=== PATIENT | male | born 1965 | race Caucasian/White ===

== ENCOUNTER 2018-05-24 11:07 | Inpatient (IN) | payer OTHER ==
[2018-05-24 11:30] VITALS: BMI 33.2
--- NOTE | 2018-05-24 12:07 | HP ---
CIWA Score - CIWA Score Nausea/Vomitin-Int. Nausea w/Dry Heave Muscle Tremors: 3 Anxiety: 2 Agitation: 2 Paroxysmal Sweats: 3 Orientation: 0-Oriented Tacttile Disturbances: 1-Very Mild Itch/Numbness Auditory Disturbances: 0-None Visual Disturbances: 0-None Headache: 1-Very Mild CIWA-Ar Total Score: 16 Admission ROS BHS - HPI Chief Complaint: I need to stop using drugs and alcohol. Allergies/Adverse Reactions: Allergies Allergy/AdvReac Type Severity Reaction Status Date / Time No Known Allergies Allergy Verified 05/24/18 11:43 History of Present Illness: 52 y/o m pt with a h/o opioid dep since age 8 , last used 3 bags nasal heroin last night , Pt also drinks alcohol usually 2 six pk/day -which he started at age 9 The pt is now seeking detox and rehab. Exam Limitations: No Limitations - Ebola screening Have you traveled outside of the country in the last 21 days: No Have you had contact with anyone from an Ebola affected area: No Have you been sick,other than usual withdrawal symptoms: No Do you have a fever: No - Review of Systems Constitutional: Loss of Appetite, Malaise, Night Sweats EENT: reports: Blurred Vision, Hearing Loss, Dental Problems Respiratory: reports: Wheezing Cardiac: reports: Other (h/o CAD) GI: reports: Diarrhea, Nausea, Poor Appetite, Other (gerd) : reports: Frequency Musculoskeletal: reports: Back Pain, Muscle Pain Integumentary: reports: No Symptoms Reported Neuro: reports: Headache, Numbness (feet), Tremors Endocrine: reports: Increased Thirst, Increased Urine Hematology: reports: No Symptoms Reported Psychiatric: reports: Orientated x3, Agitated, Anxious, Depressed Patient History - Patient Medical History Hx Anemia: No Hx Asthma: Yes Hx Chronic Obstructive Pulmonary Disease (COPD): No Hx Cancer: No Hx Cardiac Disorders: Yes (cad s/p 2012) Hx Congestive Heart Failure: No Hx Hypertension: Yes Hx Hypercholesterolemia: Yes Hx Pacemaker: No HX Cerebrovascular Accident: No Hx Seizures: No Hx Dementia: No Hx Diabetes: Yes Hx Gastrointestinal Disorders: No Hx Genitourinary Disorders: No Hx Sexually Transmitted Disorders: No Hx Renal Disease (ESRD): No Hx Thyroid Disease: No Hx Human Immunodeficiency Virus (HIV): No Hx Hepatitis C: No Hx Depression: No Hx Suicide Attempt: No Hx Bipolar Disorder: Yes Hx Schizophrenia: No - Patient Surgical History Past Surgical History: No - PPD History Previous Implant?: Yes Documented Results: Negative w/o proof Implanted On Prior R Admission?: No PPD to be Administered?: Yes - Reproductive History Patient is a Female of Child Bearing Age (11 -55 yrs old): No - Smoking Cessation Smoking history: Current every day smoker Have you smoked in the past 12 months: Yes Aproximately how many cigarettes per day: 10 Cigars Per Day: 10 Hx Chewing Tobacco Use: No Initiated information on smoking cessation: Yes 'Breaking Loose' booklet given: 05/24/18 - Substance & Tx. History Hx Alcohol Use: Yes Hx Substance Use: Yes Substance Use Type: Alcohol, Heroin Hx Substance Use Treatment: Yes - Substances Abused Heroin Route: Injection Frequency: Daily Amount used: 3 BAGS Age of first use: 8 Date of Last Use: 05/23/18 Cocaine Route: Smoking Frequency: Daily Amount used: $100 AND UP Age of first use: 8 Date of Last Use: 05/23/18 Alcohol Route: Oral Frequency: Daily Amount used: 6 24 OZ BEERS Age of first use: 8 Date of Last Use: 05/23/18 Family Disease History - Family Disease History Family History: Denies Admission Physical Exam S - Vital Signs Vital Signs: Vital Signs - 24 hr 05/24/18 11:28 Temperature 97.7 F Pulse Rate 90 Respiratory 20 Rate Blood Pressure 141/85 - Physical General Appearance: Yes: No Apparent Distress, Alcohol on Breath, Intoxicated, Obese, Tremorous, Anxious HEENTM: Yes: EOMI, Normocephalic, Normal Voice, JOSE, Hearing Decreased Respiratory: Yes: Chest Non-Tender, Lungs Clear, Normal Breath Sounds, No Respiratory Distress Neck: Yes: No masses,lesions,Nodules, Supple, Trachea in good position Breast: Yes: Within Normal Limits Cardiology: Yes: Regular Rhythm, Regular Rate, S1, S2 Abdominal: Yes: Non Tender, Soft, Increased Bowel Sounds, Protuberent Genitourinary: Yes: Frequency Back: Yes: Within Normal Limits Musculoskeletal: Yes: Back pain Extremities: Yes: Tremors 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, Fully Oriented, Alert, Motor Strength 5/5, Finger to Nose Integumentary: Yes: Moist Lymphatic: Yes: Within Normal Limits - Diagnostic (1) Opioid dependence with current use Current Visit: Yes Status: Chronic (2) Continuous chronic alcoholism Current Visit: Yes Status: Chronic (3) Cocaine abuse Current Visit: Yes Status: Chronic (4) CAD (coronary artery disease) Current Visit: Yes Status: Chronic (5) Diabetes mellitus Current Visit: Yes Status: Chronic Qualifiers: Diabetes mellitus type: type 2 (6) HTN (hypertension) Current Visit: Yes Status: Chronic Cleared for Admission S - Detox or Rehab [facility] Level of Care: Medically Managed Detox Regimen/Protocol: Methadone/Librium [facility] Breath Alcohol Content Breath Alcohol Content: 0 Urine Drug Screen - Results Drug Screen Negative: No Urine Drug Screen Results: JOO-Cocaine, OPI-Opiates, BZO-Benzodiazepines
[2018-05-24] MEDS ORDERED: P-EPHED 60MG/TRIPROLIDI 2.5MG TABLET PO PRN (12:34)
[2018-05-24] MEDS ORDERED: guaiFENesin/D-METHORPHAN HB 10 ML UNIT-DOSE CUPS PO PRN (12:34)
[2018-05-24] MEDS ORDERED: hydrOXYzine PAMOATE 25 MG CAPSULE (FP) PO PRN (12:34)
[2018-05-24] MEDS ORDERED: MAGNESIUM HYDROX 2400MG/30ML ORAL SUSPENSION 30 ML CUP PO PRN (12:34)
[2018-05-24] MEDS ORDERED: LOPERAMIDE HCL 2 MG CAPSULE PO PRN (12:34)
[2018-05-24] MEDS ORDERED: ACETAMINOPHEN 325 MG TABLET (FP) PO PRN (12:34)
[2018-05-24] MEDS ORDERED: chlordiazePOXIDE HCL 25 MG CAPSULE PO PRN (12:34)
[2018-05-24] MEDS ORDERED: NICOTINE POLACRILEX 4 MG GUM BC PRN (12:34)
[2018-05-24] MEDS ORDERED: IBUPROFEN 400 MG TABLET (FP) PO PRN (12:34)
[2018-05-24] MEDS ORDERED: MENTHOL/PHENOL 1 EACH UD MM PRN (12:34)
[2018-05-24] MEDS ORDERED: MAGNESIUM CITRATE 300 ML BOTTLE PO PRN (12:34)
[2018-05-24] MEDS ORDERED: METHADONE HCL 10 MG TABLET (FOR DETOX USE ONLY) PO ONE ×2 (12:45→23:00)
[2018-05-24] MEDS: sitaGLIPtin PHOSPHATE 50 MG TABLET PO SCH (17:55)
[2018-05-24] MEDS: metFORMIN HCL 500 MG TABLET (FP) PO SCH (17:56)
[2018-05-24] MEDS: chlordiazePOXIDE HCL 25 MG CAPSULE PO SCH ×2 (17:56→22:15)
[2018-05-24] MEDS ORDERED: MELATONIN 5 MG TABLETS PO PRN (22:00)
[2018-05-24] MEDS ORDERED: CICLOPIROX TP SCH ×2 (22:00)
[2018-05-24] MEDS ORDERED: SKIN CLEANSER NO 40 TP SCH ×2 (22:00)
[2018-05-24] MEDS ORDERED: [UNRECOGNIZED DRUG - OTHER] TP SCH ×2 (22:00)
[2018-05-24] MEDS: THIAMINE HCL 100 MG TABLET (FP) PO SCH (22:15)
[2018-05-24] MEDS: CLOPIDOGREL BISULFATE 75 MG TABLET (FP) PO SCH (22:15)
[2018-05-24] MEDS: CICLOPIROX TP SCH (22:16)
[2018-05-25] MEDS: chlordiazePOXIDE HCL 25 MG CAPSULE PO SCH ×3 (06:16→16:46)
[2018-05-25] MEDS: metFORMIN HCL 500 MG TABLET (FP) PO SCH ×2 (07:06→16:45)
[2018-05-25] MEDS: sitaGLIPtin PHOSPHATE 50 MG TABLET PO SCH ×2 (07:07→16:45)
--- NOTE | 2018-05-25 09:03 | EKG ---
Test Reason : Blood Pressure : / mmHG Vent. Rate : 089 BPM Atrial Rate : 089 BPM P-R Int : 134 ms QRS Dur : 082 ms QT Int : 362 ms P-R-T Axes : 048 039 077 degrees QTc Int : 440 ms NORMAL SINUS RHYTHM NORMAL ECG NO PREVIOUS ECGS AVAILABLE Confirmed by PADMAJA HORVATH, OLGA ([id number]) on 05/25/2018 9:03:18 AM Referred By: Confirmed By:OLGA GIANG MD
[2018-05-25] MEDS ORDERED: ALBUTEROL SO4 8 GM HFA INHALER IH PRN (09:22)
[2018-05-25] MEDS ORDERED: ERGOCALCIFEROL (VITAMIN D2) 50,000 UNIT CAPSULE (FP) PO SCH (10:00)
[2018-05-25] MEDS ORDERED: PATIENT'S OWN MEDICATION (NON-FORMULARY) (Omeprazole [Omeprazole] 40 MG) PO SCH (10:00)
[2018-05-25 10:37] LABS: URINE APPEARANCE CLEAR; URINE BILIRUBIN NEGATIVE (<2.0 mg/dL); URINE COLOR YELLOW; URINE GLUCOSE (UA) 3+ (NEGATIVE); URINE KETONE NEGATIVE (NEGATIVE); URINE LEUK ESTERASE NEGATIVE (NEGATIVE); URINE NITRITE NEGATIVE (NEGATIVE); URINE PROTEIN NEGATIVE (NEGATIVE); URINE UROBILINOGEN NEGATIVE mg/dL (0.2-1.0)
[2018-05-25 10:37] LABS: HEMATOCRIT 45.7 % (35.4-49); HEMOGLOBIN 15.9 GM/dL (11.7-16.9); MCH 31.7 pg (25.7-33.7); MCHC 34.7 g/dl (32.0-35.9); MEAN CELL VOLUME 91.2 fl (80-96); MEAN PLT VOLUME 8.5 fl (7.5-11.1); PLATELET COUNT 345 K/MM3 (134-434); RBC 5.01 M/mm3 (4.00-5.60); WHITE BLOOD COUNT 10.5 K/mm3 (4.0-10.0)
[2018-05-25 10:46] LABS: CHLORIDE 96 mmol/L (98-107); POTASSIUM 4.6 mmol/L (3.5-5.1); SODIUM 134 mmol/L (136-145)
[2018-05-25] MEDS: ASPIRIN 81 MG CHEWABLE TABLETS PO SCH (10:53)
[2018-05-25] MEDS: PANTOPRAZOLE 40 MG TABLET (FP) PO SCH (10:54)
[2018-05-25] MEDS: LISINOPRIL 5 MG TABLET (FP) PO SCH (10:54)
[2018-05-25] MEDS: NICOTINE 21 MG/24 HOURS TOPICAL PATCH TD SCH (10:55)
[2018-05-25] MEDS: PRENATAL VITAMINS W/ FOLIC ACID TABLET (FP) PO SCH (10:58)
[2018-05-25] MEDS: CICLOPIROX TP SCH (10:58)
[2018-05-25 11:10] LABS: ALBUMIN 4.5 g/dl (3.4-5.0); ALK PHOS 65 U/L (45-117); ANION GAP 8 (8-16); BILIRUBIN,TOTAL 0.7 mg/dL (0.2-1.0); BLOOD UREA NITROGEN 16 mg/dL (7-18); CALCIUM 10.2 mg/dL (8.5-10.1); CO2 30 mmol/L (21-32); GLUCOSE,RANDOM 174 mg/dL (74-106); SGOT/AST 52 U/L (15-37); SGPT/ALT 43 U/L (12-78); TOT PROT 8.6 g/dl (6.4-8.2)
--- NOTE | 2018-05-25 12:35 | PN ---
S CIWA - CIWA Score Nausea/Vomitin Muscle Tremors: 3 Anxiety: 3 Agitation: 2 Paroxysmal Sweats: 1-Minimal Palms Moist Orientation: 0-Oriented Tacttile Disturbances: 1-Very Mild Itch/Numbness Auditory Disturbances: 1-Very Mild Visual Disturbances: 0-None Headache: 2-Mild CIWA-Ar Total Score: 16 BHS COWS - Scale Resting Pulse: 1= [place] 81-100 Sweatin= Chills/Flushing Restless Observation: 3= Extraneous Movement Pupil Size: 1= Pupils >than Normal Bone or Joint Aches: 2= Severe Diffuse Aches Runny Nose/ Eye Tearin= Runny Nose/Eyes GI Upset > 30mins: 2= Nausea/Diarrhea Tremor Observation of Outstretched Hands: 2= Slight Tremor Visible Yawning Observation: 1= 1-2x During Session Anxiety or Irritability: 2=Irritable/Anxious Goose Flesh Skin: 0=Smooth Skin COWS Score: 17 [facility] Progress Note (SOAP) Subjective: alert,irrtiable,anxious,interrupted sleep,pain in the body and back Objective: 05/25/18 12:32 Vital Signs Temperature 97.7 F 05/25/18 09:57 Pulse Rate 85 05/25/18 09:57 Respiratory Rate 18 05/25/18 09:57 Blood Pressure 124/69 05/25/18 09:57 O2 Sat by Pulse Oximetry (%) ekg nsr,normal ecg qt/qtc 362/440 Laboratory Last Values WBC 10.5 K/mm3 (4.0-10.0) H 05/25/18 06:00 RBC 5.01 M/mm3 (4.00-5.60) 05/25/18 06:00 Hgb 15.9 GM/dL (11.7-16.9) 05/25/18 06:00 Hct 45.7 % (35.4-49) 05/25/18 06:00 MCV 91.2 fl (80-96) 05/25/18 06:00 MCH 31.7 pg (25.7-33.7) 05/25/18 06:00 MCHC 34.7 g/dl (32.0-35.9) 05/25/18 06:00 RDW 13.0 % (11.9-15.9) 05/25/18 06:00 Plt Count 345 K/MM3 (134-434) 05/25/18 06:00 MPV 8.5 fl (7.5-11.1) 05/25/18 06:00 Sodium 134 mmol/L (136-145) L 05/25/18 06:00 Potassium 4.6 mmol/L (3.5-5.1) 05/25/18 06:00 Chloride 96 mmol/L (98-107) L 05/25/18 06:00 Carbon Dioxide 30 mmol/L (21-32) 05/25/18 06:00 Anion Gap 8 (8-16) 05/25/18 06:00 BUN 16 mg/dL (7-18) 05/25/18 06:00 Creatinine 1.0 mg/dL (0.7-1.3) 05/25/18 06:00 Creat Clearance w eGFR > 60 (>60) 05/25/18 06:00 POC Glucometer 268 UNITS (80-120) 05/25/18 07:04 Random Glucose 174 mg/dL (74-106) H 05/25/18 06:00 Calcium 10.2 mg/dL (8.5-10.1) H 05/25/18 06:00 Total Bilirubin 0.7 mg/dL (0.2-1.0) 05/25/18 06:00 AST 52 U/L (15-37) H 05/25/18 06:00 ALT 43 U/L (12-78) 05/25/18 06:00 Alkaline Phosphatase 65 U/L (45-117) 05/25/18 06:00 Total Protein 8.6 g/dl (6.4-8.2) H 05/25/18 06:00 Albumin 4.5 g/dl (3.4-5.0) 05/25/18 06:00 Urine Color Yellow 05/25/18 08:30 Urine Appearance Clear 05/25/18 08:30 Urine pH 5.0 (5.0-8.0) 05/25/18 08:30 Ur Specific [place] 1.026 (1.001-1.035) 05/25/18 08:30 Urine Protein Negative (NEGATIVE) 05/25/18 08:30 Urine Glucose (UA) 3+ (NEGATIVE) H 05/25/18 08:30 Urine Ketones Negative (NEGATIVE) 05/25/18 08:30 Urine Blood Negative (NEGATIVE) 05/25/18 08:30 Urine Nitrite Negative (NEGATIVE) 05/25/18 08:30 Urine Bilirubin Negative (<2.0 mg/dL) 05/25/18 08:30 Urine Urobilinogen Negative mg/dL (0.2-1.0) 05/25/18 08:30 Ur Leukocyte Esterase Negative (NEGATIVE) 05/25/18 08:30 HIV 1&2 Antibody Screen Negative 05/25/18 09:00 HIV P24 Antigen Negative 05/25/18 09:00 05/25/18 12:34 lab pending Assessment: 05/25/18 12:34 withdrawal symptom Plan: continue detox,bgm monitoring
--- NOTE | 2018-05-25 16:49 | CONSULT ---
[facility] Psychiatric Consult - Data Date of interview: 05/25/18 Admission source: [facility] Identifying data: First admission to [facility] for this 52 y/o male seeking detox treatment on for alcohol,heroin and cocaine dependence.Patient is single without dependents,domiciled,unemployed and supported on welfare. Substance Abuse History: Discussed in my iterview.Patient confirms past/current use of substances as reported in this [facility] extract : Smoking history: Current every day smoker. Have you smoked in the past 12 months: Yes. Aproximately how many cigarettes per day: 10. Cigars Per Day: 10. Hx Chewing Tobacco Use: No. Initiated information on smoking cessation: Yes. 'Breaking Loose' booklet given: 05/24/18. - Substance & Tx. History. Hx Alcohol Use: Yes. Hx Substance Use: Yes. Substance Use Type: Alcohol, Heroin. Hx Substance Use Treatment: Yes. - Substances Abused. Heroin. Route: Injection. Frequency : Daily. Amount used: 3 BAGS. Age of first use: 8. Date of Last Use: . Cocaine. Route: Smoking. Frequency: Daily. Amount used: $100 AND UP. Age of first use: 8. Date of Last Use: 05/23/18. Alcohol. Route: Oral. Frequency: Daily. Amount used: 6 24 OZ BEERS. Age of first use: 8. Date of Last Use: 05/23/18 Medical History: Multiple co-morbidities : diabetes mellitus,bronchial asthma, hypertension,coronary artery disease (four stents in place) and dyslipidemia. Psychiatric History: No reported history of psychiatric hospitalizations.Patient informs that he is currently seeing a private psychiatrist, in [facility], for medication management (trazodone 100 mg/hs + seroquel 300 mg/hs).Reportedly diagnosed with Bipolar Disorder.Mr Payne denies history of suicide attempts. Physical/Sexual Abuse/Trauma History: No history of abuse. Additional Comment: Urine Drug Screen Results: JOO-Cocaine, OPI-Opiates, BZO- Benzodiazepines.Noted. Mental Status Exam - Mental Status Exam Alert and Oriented to: Time, Place, Person Cognitive Function: Good Patient Appearance: Well Groomed (overweight,wearing a heavy gamboa) Mood: Withdrawn, Anxious Affect: Mood Congruent Patient Behavior: Fatigued, Cooperative Speech Pattern: Clear (bilingual) Voice Loudness: Normal Thought Process: Goal Oriented Thought Disorder: Not Present Hallucinations: Denies Suicidal Ideation: Denies Homicidal Ideation: Denies Insight/Judgement: Poor Sleep: Poorly, Difficulty falling asleep Appetite: Good Muscle strength/Tone: Normal Gait/Station: Normal Psychiatric Findings - Problem List ([place] 1, 2,3) (1) Opioid dependence Current Visit: Yes Status: Acute (2) Cocaine dependence Current Visit: Yes Status: Acute (3) Nicotine dependence Current Visit: Yes Status: Acute (4) Substance induced mood disorder Current Visit: Yes Status: Acute (5) Bipolar disorder Current Visit: No Status: Suspected (6) Non compliance w medication regimen Current Visit: Yes Status: Chronic (7) Insomnia Current Visit: Yes Status: Acute - Initial Treatment Plan Initial Treatment Plan: Psychoeducation.Sleep hygiene.Detoxification.Seroquel 100 mg po hs (reduced).Trazodone is withdrawn until further orders.Side effects/ benefits of both drugs are discussed with the patient.Mr Payne agrees to this careplan.Contact made with pharmacist at the [facility] [phone] : last refill for seroquel 300 mg/hs (no trazodone) was issued in January 2018, which raised suspicion of sub-optimal adherence to medications.Psychiatry- Liaison will address titration, during hospital course, if clinically indicated.Mr Payne agrees to this careplan.Observation.
[2018-05-26] MEDS: CICLOPIROX TP SCH ×3 (00:04→23:28)
[2018-05-26] MEDS: CLOPIDOGREL BISULFATE 75 MG TABLET (FP) PO SCH ×2 (00:05→23:28)
[2018-05-26] MEDS: chlordiazePOXIDE HCL 25 MG CAPSULE PO SCH ×3 (00:05→10:57)
[2018-05-26] MEDS: QUEtiapine FUMARATE 100 MG TABLET (FP) PO SCH ×2 (00:05→23:28)
[2018-05-26] MEDS: THIAMINE HCL 100 MG TABLET (FP) PO SCH ×2 (00:06→23:29)
[2018-05-26] MEDS: sitaGLIPtin PHOSPHATE 50 MG TABLET PO SCH ×2 (06:42→17:00)
[2018-05-26] MEDS: metFORMIN HCL 500 MG TABLET (FP) PO SCH ×2 (06:42→17:30)
[2018-05-26] MEDS: ASPIRIN 81 MG CHEWABLE TABLETS PO SCH (10:53)
[2018-05-26] MEDS: PANTOPRAZOLE 40 MG TABLET (FP) PO SCH (10:53)
[2018-05-26] MEDS: METHADONE HCL 5 MG TABLET (FOR DETOX USE ONLY) PO SCH (10:53)
[2018-05-26] MEDS: PRENATAL VITAMINS W/ FOLIC ACID TABLET (FP) PO SCH (10:53)
[2018-05-26] MEDS: NICOTINE 21 MG/24 HOURS TOPICAL PATCH TD SCH (10:54)
[2018-05-26] MEDS: LISINOPRIL 5 MG TABLET (FP) PO SCH (10:58)
--- NOTE | 2018-05-26 12:31 | PN ---
[facility] CIWA - CIWA Score Nausea/Vomitin-No Nausea/No Vomiting Muscle Tremors: 4-Moderate,w/Arms Extend Anxiety: 3 Agitation: 3 Paroxysmal Sweats: 1-Minimal Palms Moist Orientation: 0-Oriented Tacttile Disturbances: 0-None Auditory Disturbances: 0-None Visual Disturbances: 0-None Headache: 1-Very Mild CIWA-Ar Total Score: 12 [facility] COWS - Scale Resting Pulse: 0= [place] 80 or Below Sweatin= Chills/Flushing Restless Observation: 1= Difficult to Sit Still Pupil Size: 0= Normal to Room Light Bone or Joint Aches: 2= Severe Diffuse Aches Runny Nose/ Eye Tearin= Nasal Congestion GI Upset > 30mins: 2= Nausea/Diarrhea Tremor Observation of Outstretched Hands: 2= Slight Tremor Visible Yawning Observation: 1= 1-2x During Session Anxiety or Irritability: 2=Irritable/Anxious Goose Flesh Skin: 0=Smooth Skin COWS Score: 12 [facility] Progress Note (SOAP) Subjective: joints pant body aches trouble sleep at night sweat tremor gi distress Objective: 05/26/18 12:35 Vital Signs Temperature 98.1 F 05/26/18 10:00 Pulse Rate 76 05/26/18 10:00 Respiratory Rate 18 05/26/18 10:00 Blood Pressure 109/54 05/26/18 10:00 O2 Sat by Pulse Oximetry (%) Laboratory Last Values WBC 10.5 K/mm3 (4.0-10.0) H 05/25/18 06:00 RBC 5.01 M/mm3 (4.00-5.60) 05/25/18 06:00 Hgb 15.9 GM/dL (11.7-16.9) 05/25/18 06:00 Hct 45.7 % (35.4-49) 05/25/18 06:00 MCV 91.2 fl (80-96) 05/25/18 06:00 MCH 31.7 pg (25.7-33.7) 05/25/18 06:00 MCHC 34.7 g/dl (32.0-35.9) 05/25/18 06:00 RDW 13.0 % (11.9-15.9) 05/25/18 06:00 Plt Count 345 K/MM3 (134-434) 05/25/18 06:00 MPV 8.5 fl (7.5-11.1) 05/25/18 06:00 Sodium 134 mmol/L (136-145) L 05/25/18 06:00 Potassium 4.6 mmol/L (3.5-5.1) 05/25/18 06:00 Chloride 96 mmol/L (98-107) L 05/25/18 06:00 Carbon Dioxide 30 mmol/L (21-32) 05/25/18 06:00 Anion Gap 8 (8-16) 05/25/18 06:00 BUN 16 mg/dL (7-18) 05/25/18 06:00 Creatinine 1.0 mg/dL (0.7-1.3) 05/25/18 06:00 Creat Clearance w eGFR > 60 (>60) 05/25/18 06:00 POC Glucometer 215 UNITS (80-120) 05/26/18 06:41 Random Glucose 174 mg/dL (74-106) H 05/25/18 06:00 Calcium 10.2 mg/dL (8.5-10.1) H 05/25/18 06:00 Total Bilirubin 0.7 mg/dL (0.2-1.0) 05/25/18 06:00 AST 52 U/L (15-37) H 05/25/18 06:00 ALT 43 U/L (12-78) 05/25/18 06:00 Alkaline Phosphatase 65 U/L (45-117) 05/25/18 06:00 Total Protein 8.6 g/dl (6.4-8.2) H 05/25/18 06:00 Albumin 4.5 g/dl (3.4-5.0) 05/25/18 06:00 Urine Color Yellow 05/25/18 08:30 Urine Appearance Clear 05/25/18 08:30 Urine pH 5.0 (5.0-8.0) 05/25/18 08:30 Ur Specific [place] 1.026 (1.001-1.035) 05/25/18 08:30 Urine Protein Negative (NEGATIVE) 05/25/18 08:30 Urine Glucose (UA) 3+ (NEGATIVE) H 05/25/18 08:30 Urine Ketones Negative (NEGATIVE) 05/25/18 08:30 Urine Blood Negative (NEGATIVE) 05/25/18 08:30 Urine Nitrite Negative (NEGATIVE) 05/25/18 08:30 Urine Bilirubin Negative (<2.0 mg/dL) 05/25/18 08:30 Urine Urobilinogen Negative mg/dL (0.2-1.0) 05/25/18 08:30 Ur Leukocyte Esterase Negative (NEGATIVE) 05/25/18 08:30 RPR Titer Nonreactive (NONREACTIVE) 05/25/18 06:00 HIV 1&2 Antibody Screen Negative 05/25/18 09:00 HIV P24 Antigen Negative 05/25/18 09:00 lab noted Assessment: 05/26/18 12:35 withdrawal sx Plan: continue detox
[2018-05-26] MEDS: chlordiazePOXIDE 5 MG CAPSULE PO SCH ×2 (17:41→23:28)
[2018-05-27] MEDS: chlordiazePOXIDE 5 MG CAPSULE PO SCH ×2 (06:00→10:28)
[2018-05-27] MEDS: sitaGLIPtin PHOSPHATE 50 MG TABLET PO SCH ×2 (06:15→16:56)
[2018-05-27] MEDS: metFORMIN HCL 500 MG TABLET (FP) PO SCH ×2 (06:15→16:56)
[2018-05-27] MEDS: MAG HYDROX/AL HYDROX/SIMETH 30 ML UNIT-DOSE CUP PO PRN (07:35)
[2018-05-27] MEDS: LISINOPRIL 5 MG TABLET (FP) PO SCH (10:27)
[2018-05-27] MEDS: ASPIRIN 81 MG CHEWABLE TABLETS PO SCH (10:28)
[2018-05-27] MEDS: METHADONE HCL 5 MG TABLET (FOR DETOX USE ONLY) PO SCH (10:28)
[2018-05-27] MEDS: CICLOPIROX TP SCH ×2 (10:28→23:19)
[2018-05-27] MEDS: NICOTINE 21 MG/24 HOURS TOPICAL PATCH TD SCH (10:28)
[2018-05-27] MEDS: PRENATAL VITAMINS W/ FOLIC ACID TABLET (FP) PO SCH (10:28)
[2018-05-27] MEDS: PANTOPRAZOLE 40 MG TABLET (FP) PO SCH (10:28)
--- NOTE | 2018-05-27 12:13 | PN ---
BHS Progress Note (SOAP) Subjective: alert,irritable,anxious,interrupted sleep,tremor,pain n the body and back Objective: 05/27/18 12:12 Vital Signs Temperature 96.3 F L 05/27/18 09:46 Pulse Rate 106 H 05/27/18 09:46 Respiratory Rate 18 05/27/18 09:46 Blood Pressure 147/89 05/27/18 09:46 O2 Sat by Pulse Oximetry (%) 05/27/18 12:12 withdrawal symptom 05/27/18 12:12 bgm 149 Assessment: 05/27/18 12:13 withdrawal symptom Plan: continue detox
[2018-05-27] MEDS: chlordiazePOXIDE HCL 10 MG CAPSULE PO SCH ×2 (17:29→23:21)
[2018-05-27] MEDS: CLOPIDOGREL BISULFATE 75 MG TABLET (FP) PO SCH (23:19)
[2018-05-27] MEDS: THIAMINE HCL 100 MG TABLET (FP) PO SCH (23:21)
[2018-05-27] MEDS: QUEtiapine FUMARATE 100 MG TABLET (FP) PO SCH (23:21)
[2018-05-28] MEDS: chlordiazePOXIDE HCL 10 MG CAPSULE PO SCH ×2 (06:40→10:24)
[2018-05-28] MEDS: sitaGLIPtin PHOSPHATE 50 MG TABLET PO SCH ×2 (06:40→16:48)
[2018-05-28] MEDS: metFORMIN HCL 500 MG TABLET (FP) PO SCH ×2 (06:40→16:48)
[2018-05-28] MEDS: PRENATAL VITAMINS W/ FOLIC ACID TABLET (FP) PO SCH (10:21)
[2018-05-28] MEDS: METHADONE HCL 10 MG TABLET (FOR DETOX USE ONLY) PO SCH ×2 (10:21→11:15)
[2018-05-28] MEDS: PANTOPRAZOLE 40 MG TABLET (FP) PO SCH (10:21)
[2018-05-28] MEDS: ASPIRIN 81 MG CHEWABLE TABLETS PO SCH (10:21)
[2018-05-28] MEDS: NICOTINE 21 MG/24 HOURS TOPICAL PATCH TD SCH (10:23)
[2018-05-28] MEDS: LISINOPRIL 5 MG TABLET (FP) PO SCH (10:23)
[2018-05-28] MEDS: CICLOPIROX TP SCH ×2 (10:23→22:34)
--- NOTE | 2018-05-28 13:51 | PN ---
S Progress Note (SOAP) Subjective: alert,irritable,anxious,interrupted sleep Objective: 05/28/18 13:40 Vital Signs Temperature 98.2 F 05/28/18 13:17 Pulse Rate 83 05/28/18 13:17 Respiratory Rate 20 05/28/18 13:17 Blood Pressure 108/74 05/28/18 13:17 O2 Sat by Pulse Oximetry (%) Assessment: 05/28/18 13:41 withdrawal symptom 05/28/18 13:41 bgm 135 Plan: withdrawal symptom,continue detox,bgm monitoring
[2018-05-28] MEDS ORDERED: CEPHALEXIN MONOHYDRATE 500 MG CAPSULE (UD) PO ONE (15:50)
--- NOTE | 2018-05-28 15:52 | PN ---
BHS Progress Note Note: abscess of right thigh keflex 500 mgs po tid for 7 days
[2018-05-28] MEDS: MAG HYDROX/AL HYDROX/SIMETH 30 ML UNIT-DOSE CUP PO PRN (16:48)
[2018-05-28] MEDS: THIAMINE HCL 100 MG TABLET (FP) PO SCH (22:34)
[2018-05-28] MEDS: CEPHALEXIN MONOHYDRATE 500 MG CAPSULE (UD) PO SCH (22:34)
[2018-05-28] MEDS: QUEtiapine FUMARATE 100 MG TABLET (FP) PO SCH (22:34)
[2018-05-28] MEDS: CLOPIDOGREL BISULFATE 75 MG TABLET (FP) PO SCH (22:34)
[2018-05-29] MEDS: CEPHALEXIN MONOHYDRATE 500 MG CAPSULE (UD) PO SCH (07:00)
--- NOTE | 2018-05-29 08:51 | PN ---
S Progress Note (SOAP) Subjective: alert,no complaint except nausea Objective: 05/29/18 08:47 Vital Signs Temperature 96.9 F L 05/29/18 06:00 Pulse Rate 74 05/29/18 06:00 Respiratory Rate 18 05/29/18 06:00 Blood Pressure 100/56 05/29/18 06:00 O2 Sat by Pulse Oximetry (%) 05/29/18 09:09 bgm 171 Assessment: 05/29/18 09:09 patient is stable [facility] Plan: discharge today,[facility]
--- NOTE | 2018-05-29 09:18 | DS ---
[facility] Detox Discharge Summary Admission Date: 05/24/18 Discharge Date: 05/29/18 - History Present History: Alcohol Dependence, Opioid Dependence, Sedative Dependence Additional Comments: follow up with after care program as arrangement Pertinent Past History: coronary artery disease type 2 dm hypertension - Physical Exam Results Vital Signs: Vital Signs Temperature 96.9 F L 05/29/18 06:00 Pulse Rate 74 05/29/18 06:00 Respiratory Rate 18 05/29/18 06:00 Blood Pressure 100/56 05/29/18 06:00 O2 Sat by Pulse Oximetry (%) Pertinent Admission Physical Exam Findings: withdrawal signs and symptom Laboratory Last Values WBC 10.5 K/mm3 (4.0-10.0) H 05/25/18 06:00 RBC 5.01 M/mm3 (4.00-5.60) 05/25/18 06:00 Hgb 15.9 GM/dL (11.7-16.9) 05/25/18 06:00 Hct 45.7 % (35.4-49) 05/25/18 06:00 MCV 91.2 fl (80-96) 05/25/18 06:00 MCH 31.7 pg (25.7-33.7) 05/25/18 06:00 MCHC 34.7 g/dl (32.0-35.9) 05/25/18 06:00 RDW 13.0 % (11.9-15.9) 05/25/18 06:00 Plt Count 345 K/MM3 (134-434) 05/25/18 06:00 MPV 8.5 fl (7.5-11.1) 05/25/18 06:00 Sodium 134 mmol/L (136-145) L 05/25/18 06:00 Potassium 4.6 mmol/L (3.5-5.1) 05/25/18 06:00 Chloride 96 mmol/L (98-107) L 05/25/18 06:00 Carbon Dioxide 30 mmol/L (21-32) 05/25/18 06:00 Anion Gap 8 (8-16) 05/25/18 06:00 BUN 16 mg/dL (7-18) 05/25/18 06:00 Creatinine 1.0 mg/dL (0.7-1.3) 05/25/18 06:00 Creat Clearance w eGFR > 60 (>60) 05/25/18 06:00 POC Glucometer 151 UNITS (80-120) 05/28/18 16:22 Random Glucose 174 mg/dL (74-106) H 05/25/18 06:00 Calcium 10.2 mg/dL (8.5-10.1) H 05/25/18 06:00 Total Bilirubin 0.7 mg/dL (0.2-1.0) 05/25/18 06:00 AST 52 U/L (15-37) H 05/25/18 06:00 ALT 43 U/L (12-78) 05/25/18 06:00 Alkaline Phosphatase 65 U/L (45-117) 05/25/18 06:00 Total Protein 8.6 g/dl (6.4-8.2) H 05/25/18 06:00 Albumin 4.5 g/dl (3.4-5.0) 05/25/18 06:00 Urine Color Yellow 05/25/18 08:30 Urine Appearance Clear 05/25/18 08:30 Urine pH 5.0 (5.0-8.0) 05/25/18 08:30 Ur Specific [place] 1.026 (1.001-1.035) 05/25/18 08:30 Urine Protein Negative (NEGATIVE) 05/25/18 08:30 Urine Glucose (UA) 3+ (NEGATIVE) H 05/25/18 08:30 Urine Ketones Negative (NEGATIVE) 05/25/18 08:30 Urine Blood Negative (NEGATIVE) 05/25/18 08:30 Urine Nitrite Negative (NEGATIVE) 05/25/18 08:30 Urine Bilirubin Negative (<2.0 mg/dL) 05/25/18 08:30 Urine Urobilinogen Negative mg/dL (0.2-1.0) 05/25/18 08:30 Ur Leukocyte Esterase Negative (NEGATIVE) 05/25/18 08:30 RPR Titer Nonreactive (NONREACTIVE) 05/25/18 06:00 HIV 1&2 Antibody Screen Negative 05/25/18 09:00 HIV P24 Antigen Negative 05/25/18 09:00 Vital Signs Temperature 96.9 F L 05/29/18 06:00 Pulse Rate 74 05/29/18 06:00 Respiratory Rate 18 05/29/18 06:00 Blood Pressure 100/56 05/29/18 06:00 O2 Sat by Pulse Oximetry (%) - Treatment Hospital Course: Detox Protocol Followed, Detoxed Safely, Responded well, Discharged Condition Good, Rehab Referral Accepted Patient has Accepted a Rehab Referral to: [facility] - Medication Discharge Medications: Ambulatory Orders Aspirin [ASA -] 81 mg PO DAILY 05/24/18 Ciclopirox/Skin Cleanser No.40 [Loprox 0.77% Suspension Kit] 1 each TP BID 05/24 Clopidogrel Bisulfate [Clopidogrel] 75 mg PO HS 05/24/18 Ergocalciferol (Vitamin D2) [Vitamin D2] 50,000 unit PO WEEKLY 05/24/18 Ibuprofen [Ibu] 800 mg PO Q8H PRN 05/24/18 Lisinopril [Zestril] 2.5 mg PO DAILY 05/24/18 Metoprolol Succinate [Toprol Xl -] 50 mg PO DAILY 05/24/18 Omeprazole 40 mg PO DAILY 05/24/18 Quetiapine Fumarate [Seroquel -] 300 mg PO HS 05/24/18 Simvastatin [Zocor -] 80 mg PO HS 05/24/18 Sitagliptin Phos/Metformin HCl [Janumet 50-1,000 mg Tablet] 1 each PO BID traZODone HCL [Desyrel -] 100 mg PO HS 05/24/18 - Diagnosis (1) Opioid dependence with withdrawal Current Visit: Yes Status: Acute (2) Opioid dependence with current use Current Visit: Yes Status: Chronic (3) CAD (coronary artery disease) Current Visit: Yes Status: Chronic (4) Cocaine abuse Current Visit: Yes Status: Chronic (5) Continuous chronic alcoholism Current Visit: Yes Status: Chronic (6) Diabetes mellitus Current Visit: Yes Status: Chronic Qualifiers: Diabetes mellitus type: type 2 (7) HTN (hypertension) Current Visit: Yes Status: Chronic (8) Bipolar disorder Current Visit: Yes Status: Acute (9) Abscess of right thigh Current Visit: Yes Status: Acute - AMA Did Patient Leave Against Medical Advice: No
[2018-05-29] MEDS: ASPIRIN 81 MG CHEWABLE TABLETS PO SCH (11:28)
[2018-05-29] MEDS: sitaGLIPtin PHOSPHATE 50 MG TABLET PO SCH (11:29)
[2018-05-29] MEDS: metFORMIN HCL 500 MG TABLET (FP) PO SCH (11:29)
[2018-05-29] MEDS: METHADONE HCL 10 MG TABLET (FOR DETOX USE ONLY) PO SCH (11:29)
[2018-05-29] MEDS: CICLOPIROX TP SCH (11:29)
[2018-05-29 11:30] VITALS: BP 116/62; PULSE 81; TEMP 98.2
[2018-05-29] MEDS: LISINOPRIL 5 MG TABLET (FP) PO SCH (11:30)
[2018-05-29] MEDS: PANTOPRAZOLE 40 MG TABLET (FP) PO SCH (11:30)
[2018-05-29] MEDS: NICOTINE 21 MG/24 HOURS TOPICAL PATCH TD SCH (11:30)
[2018-05-29] MEDS: PRENATAL VITAMINS W/ FOLIC ACID TABLET (FP) PO SCH (11:30)
[2018-05-30] MEDS ORDERED: METHADONE HCL 5 MG TABLET (FOR DETOX USE ONLY) PO SCH (06:00)
== END 2018-05-29 11:31 | disposition home or self-care (01) | DRG 773 ==
LOC: YASAS 11:07 → Y6N 13:20
PROVIDERS: ADMIT Surgery; ATTEND Surgery
PROC: HZ2ZZZZ Detoxification Services for Substance Abuse Treatment (ICD-10-PCS; principal; 2018-05-24)
DX: F11.23 Opioid dependence with withdrawal (principal); F10.230 Alcohol dependence with withdrawal, uncomplicated; F14.10 Cocaine abuse, uncomplicated; F17.210 Nicotine dependence, cigarettes, uncomplicated; F19.24 Other psychoactive substance dependence with psychoactive substance-induced mood disorder; F31.9 Bipolar disorder, unspecified; I10 Essential (primary) hypertension; I25.10 Atherosclerotic heart disease of native coronary artery without angina pectoris; E78.5 Hyperlipidemia, unspecified; E11.9 Type 2 diabetes mellitus without complications; L02.415 Cutaneous abscess of right lower limb; G47.00 Insomnia, unspecified; J45.909 Unspecified asthma, uncomplicated; E66.9 Obesity, unspecified; Z68.33 Body mass index [BMI] 33.0-33.9, adult; Z91.14 Patient's other noncompliance with medication regimen; Z95.5 Presence of coronary angioplasty implant and graft; Z79.84 Long term (current) use of oral hypoglycemic drugs
CPT/HCPCS: 36415; 80053; 81003; 82962; 85027; 86593; 87389; 93005; 93010